=== PATIENT | male | born 1975 | race African-American/Black ===

== ENCOUNTER 2023-06-28 22:45 | Emergency (ER) | payer OTHER, SELFPAY ==
[2023-06-28 22:52] VITALS: BP 129/73; PULSE 79; RESP 16; TEMP 36.1; O2SAT 98; BMI 46.5
[2023-06-28 23:52] LABS: Influenza A PCR NEGATIVE (Negative); Influenza B PCR NEGATIVE (Negative); Resp Syncy Virus RNA Qual PCR NEGATIVE (Negative); SARS COV2 PCR INHOUSE NEGATIVE (Negative)
--- NOTE | 2023-06-29 00:08 | ED.GENADULT ---
HPI - General Adult General Chief complaint: General Medical Stated complaint: Sinus Pain Time Seen by Provider: 06/28/23 23:22 Related Data Allergies Allergy/AdvReac Type Severity Reaction Status Date / Time lactose AdvReac Stomach Verified 06/28/23 22:56 Upset PMFSH Social History Social History Advance Directives: No Advance Directives Information Provided: Yes Physical Exam ED Vital Signs: Vital Signs - 24 hr 06/28/23 22:52 Temperature 97.0 F Pulse Rate 79 Respiratory Rate 16 Blood Pressure 129/73 Pulse Oximetry 98 Oxygen Delivery Method Room Air BMI result Body Mass Index 46.5 Medical Decision Making Lab Data Labs: Lab Results 06/28/23 Range/Units 23:06 Influenza Type A (PCR) NEGATIVE (Negative) Influenza Type B (PCR) NEGATIVE (Negative) RSV RNA Qual (PCR) NEGATIVE (Negative) SARS-CoV-2 RNA (RT-PCR) NEGATIVE (Negative)
--- NOTE | 2023-06-29 00:09 | ED.URI ---
HPI - URI/Sore Throat General Chief Complaint: General Medical Stated Complaint: Sinus Pain Time Seen by Provider: 06/28/23 23:22 Source: patient Mode of arrival: ambulatory Limitations: no limitations History of Present Illness HPI Narrative: Patient is a 47-year-old male who presents emergency department today for evaluation of bilateral maxillary sinus pain. Reports that he awoke with symptoms yesterday evening. Feels consistent with prior sinus infection. Attempted to use Flonase nasal spray without any improvement. A couple of days ago he had mild nasal congestion but denies rhinorrhea or congestion yesterday or today. Denies fevers, chills, headache, vision changes, neck pain, neck stiffness, pain or pressure to the eyes. Denies chest pain, shortness of breath, difficulty breathing. Related Data Allergies Allergy/AdvReac Type Severity Reaction Status Date / Time lactose AdvReac Stomach Verified 06/28/23 22:56 Upset Review of Systems Review of Systems: Constitutional: No fever. No chills. No weakness. No fatigue. ENT/ Mouth: No Ear Pain, no Nasal Congestion, no sore throat, No Rhinorrhea, No Swallowing Difficulty Skin: No rash or itching. Cardiovascular: No chest pain. No palpitations. Respiratory: No shortness of breath. No cough. No sputum production. Gastrointestinal: No nausea. No vomiting. No diarrhea. No abdominal pain. Genitourinary: No burning micturition. No urinary frequency. Neurologic: No headache. No dizziness. No syncope. No numbness or tingling in the extremities. Musculoskeletal: No muscle pain. No back pain. No joint pain or stiffness. Yes all other systems are reviewed and are negative [facility] Past Medical History Attestation statement: The following information was validated with the patient. Source: old records reviewed Social History Social History Advance Directives: No Advance Directives Information Provided: Yes Physical Exam Vital Signs: Vital Signs: Last Vital Signs Temp 97.0 F 06/28/23 22:52 Pulse 79 06/28/23 22:52 Resp 16 06/28/23 22:52 BP 129/73 06/28/23 22:52 Pulse Ox 98 06/28/23 22:52 O2 Del Method Room Air 06/28/23 22:52 BMI result Body Mass Index 46.5 Appearance: Alert.?Oriented to person, place and time. No acute distress.?Normal affect. Eyes: Pupils equal, round and reactive to light.? EOMI. No nystagmus. ENT: TM normal bilaterally. Pharynx normal.. Bilateral maxillary sinus tenderness upon palpation. No frontal sinus tenderness. No signs of dental infection or abscess.?? Neck: Normal inspection.? Neck supple.??No cervical adenopathy CVS: Heart sounds normal. Normal heart rate and rhythm.? Pulses normal.?? Respiratory: No respiratory distress.? Lung sounds clear to auscultation bilaterally?? Abdomen: Soft and non-tender. Normoactive bowel sounds. Skin: Skin warm and dry.? Normal skin color.? ? Extremities: No lower extremity edema.? Neuro: Moves all extremities spontaneously. Sensation intact bilaterally. No motor deficits. Ambulates with normal steady gait. Medical Decision Making Medical Decision Making [facility] Narrative: Patient is 47-year-old male who presents emergency department for evaluation of sinus pain as per HPI. At the time my examination he is overall well-appearing, nontoxic, afebrile. COVID-19/influenza/RSV testing that were obtained per triage orders were negative. Upon physical examination there is no sign of dental infection or abscess, preseptal or septal cellulitis, no overt eye pain or pressure to suggest ophthalmic etiology. Given duration of symptoms, do not feel that antibiotics are required. Advised to continue monitoring symptoms, consider repeat COVID-19 testing in 3 days should symptoms persist. Advised conservative treatment, rest, hydration, acetaminophen/ibuprofen as needed for pain, saline nasal spray/rinses, humidifier. Advised outpatient follow-up with primary care provider as needed. Reviewed worrisome signs and symptoms that would warrant re-evaluation emergency department. All questions answered. Discharged home stable condition Differential Diagnosis Differential Diagnoses: The differential diagnosis associated with the presentation includes (As noted above) Lab Data [facility] Lab Attestation statement: I reviewed the patient's lab results. (As noted above) Labs: Lab Results 06/28/23 Range/Units 23:06 Influenza Type A (PCR) NEGATIVE (Negative) Influenza Type B (PCR) NEGATIVE (Negative) RSV RNA Qual (PCR) NEGATIVE (Negative) SARS-CoV-2 RNA (RT-PCR) NEGATIVE (Negative) Prescription Management I considered prescription management with: Antibiotic (Deferred, see narrative above for further detail) Discharge Plan Discharge Clinical Impression: Sinusitis Patient Disposition: Home, Self-Care Instructions: Sinusitis (ED) Additional Instructions: Please stay well hydrated, continued use of nasal spray. You can take ibuprofen 200 mg, 3 tablets (600mg) every 6-8 hours as needed for pain, in addition to Tylenol 500 mg, 2 tablets (1,000mg) every 4-6 hours as needed for pain, but not to exceed 3 doses daily (3,000mg).? Consider repeating COVID-19 testing in 3 days. Follow-up with your primary care provider as needed. Return back to emergency department any new or worsening symptoms or concerns. Referrals: Physician,Unknown J [Primary Care Provider] -
--- NOTE | 2023-06-29 00:32 | PC.NURSE ---
Provider into assess pt, no sob or chest pain, reviewed discharge instructions wit pt. pt verbalized understanding.
== END 2023-06-29 00:36 | disposition home or self-care (01) ==
PROVIDERS: Emergency Provider Emergency Medicine Emergency Medical Services
DX: J32.0 Chronic maxillary sinusitis (principal); Z20.822 Contact with and (suspected) exposure to COVID-19; Z20.828 Contact with and (suspected) exposure to other viral communicable diseases
CPT/HCPCS: 0241U; 99283; 99284

== ENCOUNTER 2023-10-15 14:46 | Emergency (ER) | payer OTHER, SELFPAY ==
--- NOTE | 2023-10-15 15:50 | ED.GENADULT ---
HPI - General Adult General Chief complaint: Headache Stated complaint: Headache/Congestion Time Seen by Provider: 10/15/23 23:17 Source: patient Mode of arrival: ambulatory Limitations: no limitations History of Present Illness HPI narrative: 48-year-old male history ADHD, bilateral hip pain who presents emergency department for evaluation of 1 week of right-sided headache, face pain, ear pain in teeth pain. Patient states the pain feels similar to when he had sinusitis in the past. Patient has been taking Tylenol in his other medications with no relief his discomfort. States the pain got worse therefore came to emergency department for evaluation. He denied fever, chills, nausea, vomiting or diarrhea. Related Data Previous Rx's Medication Instructions Recorded amoxicillin 875 mg-potassium 1 tab PO Q12H 10 days #20 tabs 10/15/23 clavulanate 125 mg tablet Allergies Allergy/AdvReac Type Severity Reaction Status Date / Time lactose AdvReac Stomach Verified 06/28/23 22:56 Upset Review of Systems Review of Systems: Yes all other systems are reviewed and are negative [facility] Past Medical History [facility] Narrative: Social history: He denies tobacco, alcohol and drug use Onset Date is defined in the Problem List Problems that require an onset date and time if occurred within 24 hrs of arrival to the ED Aortic Dissection and Rupture; Neurologic impairment; Cardiopulmonary Arrest; Endotracheal Intubation; Insertion or Replacement of Mechanical Circulatory Assist Device Social History Social History Advance Directives: No Advance Directives Information Provided: No Physical Exam ED Vital Signs: Vital Signs - 24 hr 10/15/23 15:51 10/15/23 21:59 Temperature 96.5 F L 98.2 F Pulse Rate 110 H 86 Respiratory Rate 18 14 Blood Pressure 129/76 121/72 Pulse Oximetry 97 97 Oxygen Delivery Method Room Air Room Air BMI result Body Mass Index 45.2 Vital signs did reveal an elevated heart rate of 110 otherwise unremarkable Exam General: Awake, alert in no distress Head: Normocephalic, atraumatic. Patient does have tenderness palpation over his left maxillary sinus, pain is worse with bending over EENT: PERRL, Lids normal, sclera normal, conjunctiva normal, nose normal , ears normal, throat without erythema or exudates Neck: Supple, no adenopathy, no trachea midline or C-spine tenderness Lung: breath sounds symmetric, no wheezing, rales or rhonchi Heart: regular rate and rhythm, normal S1, S2 no murmurs or rubs Abdomen: soft, non-tender, nondistended, normal bowel sounds Neuro: Awake, alert, oriented, normal speech, cranial nerves intact, moves all extremities symmetrically Psych: Pleasant, cooperative Course Course Course Narrative: This is an RME: Additional HPI, ROS, PE not included below will be deferred to primary provider. This is a [id number]-male, with a hx of , presenting to the ER with a complaint of headaches, ear pain, and facial pain x 1 week. Has been using neti pot and saline nasal sprays. Plan: COVID/Flu, Strep test ordered Medical Decision Making Medical Decision Making [facility] Narrative: 48-year-old male with a history of sinusitis who presents emergency department for evaluation of 1 week of left-sided facial pain. Patient's physical examination did reveal tenderness with palpation over his left maxillary sinus, pain is worse with bending over. Patient's presentation is consistent with acute sinusitis and I did discuss treatment with the patient. Patient was given Augmentin 825/125 tablet here in the emergency department. He was prescribed Augmentin 825/125 q.12 hours times 10 days. He was given printed and verbal instructions discharged home. My interpretation patient's laboratory evaluation is as follows: COVID-19, influenza and rapid strep were negative Differential Diagnosis Differential Diagnoses: The differential diagnosis associated with the presentation includes Differential diagnosis includes was not limited to sinusitis, strep throat, viral syndrome, nonspecific headache Lab Data [facility] Lab Attestation statement: I reviewed the patient's lab results. Labs: Lab Results 10/15/23 Range/Units 16:02 COVID-19 (ALBERTINA) Negative (Negative) COVID-19 Clin Com See Note Influenza Type A (KYLE) Negative (Negative) Influenza Type B (KYLE) Negative (Negative) Influenza A & B Note See Note S. pyogenes GrpA KYLE Negative (Negative) Prescription Management I considered prescription management with: Antibiotic Discharge Plan Discharge Clinical Impression: Sinusitis, acute, maxillary Qualifiers: Recurrence: recurrent Qualified Code(s): J01.01 - Acute recurrent maxillary sinusitis Patient Disposition: Home, Self-Care Instructions: Sinusitis (ED) Additional Instructions: Take Augmentin (amoxicillin/clavulanic acid) 825/125 mg, 1 pill every 12 hours for 10 days Take extra-strength Tylenol 500 mg pills, 2 pills every 6 hours as needed for pain. Continue taking your other medications as prescribed. Follow-up with your doctor in 2 days. Please return to the emergency department if your symptoms get worse or if you develop any symptoms that are concerning to you. Prescriptions: New amoxicillin-pot clavulanate 875-125 mg tablet 1 tab PO Q12H 10 Days Qty: 20 0RF
[2023-10-15 15:51] VITALS: BP 129/76; PULSE 110; RESP 18; TEMP 35.8; O2SAT 97; BMI 45.2
[2023-10-15 16:29] LABS: IDNOW Serial# 6674DD1D; Strep A Nucleic Acid Negative (Negative)
[2023-10-15 16:37] LABS: COVID-19 Test Negative (Negative); IDNOW Serial# 6674DD1D
[2023-10-15 16:50] LABS: IDNOW Serial# 9DB6401D; Influenza A Negative (Negative); Influenza B2 Negative (Negative)
[2023-10-15 21:59] VITALS: BP 121/72; PULSE 86; RESP 14; TEMP 36.8; O2SAT 97
[2023-10-15 23:30] VITALS: BP 113/70; PULSE 82; RESP 18; O2SAT 97
[2023-10-15] MEDS: Amoxicillin/Potassium Clav 875 MG TABLET PO (23:34)
== END 2023-10-15 23:41 | disposition home or self-care (01) ==
PROVIDERS: Physician Assistant Medical; Emergency Provider Emergency Medicine Emergency Medical Services; PCP Pediatrics
DX: J01.01 Acute recurrent maxillary sinusitis (principal); R51.9 Headache, unspecified; M25.552 Pain in left hip; M25.551 Pain in right hip; H92.03 Otalgia, bilateral; Z11.52 Encounter for screening for COVID-19
CPT/HCPCS: 87502; 87635; 87651; 99283; 99284